=== PATIENT | female | born 1980 | race Two or more races ===

== ENCOUNTER 2017-09-19 16:04 | Emergency (ER) | payer BC ==
[~2017-09-19] VITALS: Ht 160 cm; Wt 69.9 kg
[2017-09-19] MEDS ORDERED: IBUPROFEN 600 MG TABLET PO ONE ×2 (16:50→17:03)
[2017-09-19] MEDS ORDERED: IBUPROFEN 200 MG TABLET PO PRN (17:00)
--- NOTE | 2017-09-19 17:12 | NUR ---
PRESENTS TO ER C/O LEFT ARM PAIN S/P FELL OFF SCOOTER ~ 30 MIN [employer]. A/OX 4, BREATHING EVEN AND UNLABORED. NO SOB, NAD. NO TRAUMA NOTED. VITALS STABLE. SAFETY AND COMFORT MEASURES IN PLACE. AWAITING MD ORDERS.
--- NOTE | 2017-09-19 17:32 | NUR ---
PATIENT TAKEN TO RADIOLOGY VIA WHEELCHAIR.
--- NOTE | 2017-09-19 17:45 | NUR ---
PATIENT RETURNED FROM RADIOLOGY IN STABLE CONDITION.
--- NOTE | 2017-09-19 18:35 | NUR ---
short arm cock up splilnt applied
[2017-09-19 18:45] VITALS: BP 128/79
--- NOTE | 2017-09-19 18:48 | NUR ---
Patient discharged to home in stable condition. Written and verbal after care instructions given. Patient verbalizes understanding of instruction.
== END 2017-09-19 18:47 | disposition home or self-care (01) ==
LOC: ER 16:06
DX: S52.592A Other fractures of lower end of left radius, initial encounter for closed fracture (principal); Z60.2 Problems related to living alone; V29.88XA Motorcycle rider (driver) (passenger) injured in other specified transport accidents, initial encounter; Y93.55 Activity, bike riding; Y92.488 Other paved roadways as the place of occurrence of the external cause; Y99.8 Other external cause status
CPT/HCPCS: 29125; 73080; 73090; 99284; A4606; Z7610